=== PATIENT | male | born 1965 | race Caucasian/White ===

== ENCOUNTER 2019-02-15 09:46 | Outpatient (REF) | payer BC, SELFPAY ==
[2019-02-16 12:10] LABS: Anion Gap 14.9 mmol/L (3-11); BUN 19 mg/dL (7-18); CO2 24.1 mmol/L (21.0-32.0); CREATININE 1.45 mg/dL (0.70-1.30); Calcium 9.4 mg/dL (8.5-10.1); Calculated LDL 152; Chloride 101 mmol/L (98-107); Cholesterol 222 mg/dL (50-200); Estimated GFR 50.72 (mL/min/1.73m2); Glucose 174 mg/dL (70-100); HDL Cholesterol 34 mg/dL (40-60); Potassium 4.4 mmol/L (3.5-5.1); Sodium 140 mmol/L (136-145); Triglyceride 182 mg/dL (30-150)
== END 2019-02-15 10:06 ==
LOC: NCHCN 09:46
PROVIDERS: PCP Family Medicine; Visit Provider Family Medicine
DX: I10 Essential (primary) hypertension (principal)
CPT/HCPCS: 80048; 80061; 83721

== ENCOUNTER 2020-04-09 09:56 | Outpatient (REF) | payer BC, SELFPAY ==
[2020-04-09 19:50] LABS: Anion Gap 12.8 mmol/L (3-11); BUN 21 mg/dL (7-18); CO2 23.2 mmol/L (21.0-32.0); Calcium 9.5 mg/dL (8.5-10.1); Chloride 102 mmol/L (98-107); Estimated GFR 48.59 (mL/min/1.73m2); Glucose 245 mg/dL (74-106); Potassium 4.3 mmol/L (3.5-5.1); Sodium 138 mmol/L (136-145)
== END 2020-04-09 10:16 ==
LOC: NCHCN 09:56
PROVIDERS: PCP Family Medicine; Visit Provider Registered Nurse
DX: I10 Essential (primary) hypertension (principal); E11.9 Type 2 diabetes mellitus without complications
CPT/HCPCS: 80048

== ENCOUNTER 2021-02-13 14:37 | Outpatient (REF) | payer BC, SELFPAY ==
[2021-02-13 15:04] LABS: ALT 32 U/L (16-63); AST 23 U/L (15-37); Albumin 4.2 g/dL (3.4-5.0); Alkaline Phosphatase 97 U/L (46-116); BUN 24 mg/dL (7-18); Bilirubin, Total 0.9 mg/dL (0.2-1.0); CREATININE 1.7 mg/dL (0.70-1.30); Calcium 9.8 mg/dL (8.5-10.1); Calculated LDL 29 mg/dL (<100); Chloride 101 mmol/L (98-107); Cholesterol 99 mg/dL (<200); Glucose 189 mg/dL (74-106); HDL Cholesterol 30 mg/dL (40-60); Potassium 4.7 mmol/L (3.5-5.1); Sodium 137 mmol/L (136-145); TSH 1.26 uIU/mL (0.36-3.74); Total Protein 7.8 g/dL (6.4-8.2); Triglyceride 201 mg/dL (<150)
== END 2021-02-13 14:38 | disposition home or self-care (01) ==
LOC: NCHCN 14:37
PROVIDERS: PCP Family Medicine; Visit Provider Family Medicine
DX: E78.5 Hyperlipidemia, unspecified (principal); I10 Essential (primary) hypertension; E11.8 Type 2 diabetes mellitus with unspecified complications
CPT/HCPCS: 80053; 80061; 84443

== ENCOUNTER 2021-12-07 09:58 | Outpatient (REF) | payer BC, SELFPAY ==
[2021-12-07 17:57] LABS: COMMENT (LAB VIEW ONLY) 217.73 mg/dL; Microalb ug/mg Crea 14.7 ug/mg Cr
== END 2021-12-07 09:59 | disposition home or self-care (01) ==
LOC: NCHCN 09:58
PROVIDERS: PCP Family Medicine; Visit Provider Family Medicine
DX: E11.8 Type 2 diabetes mellitus with unspecified complications (principal)
CPT/HCPCS: 82043; 82570

== ENCOUNTER 2022-03-15 17:46 | Outpatient (REF) | payer BC, SELFPAY ==
[2022-03-15 14:40] LABS: ALT 46 U/L (16-63); Anion Gap 10.4 mmol/L (3-11); BUN 18 mg/dL (7-18); CO2 26.6 mmol/L (21.0-32.0); CREATININE 1.4 mg/dL (0.70-1.30); Calcium 9.2 mg/dL (8.5-10.1); Calculated LDL 71 mg/dL (<100); Chloride 102 mmol/L (98-107); Cholesterol 154 mg/dL (<200); Estimated GFR 52.24 (mL/min/1.73m2); Glucose 168 mg/dL (74-106); HDL Cholesterol 37 mg/dL (40-60); Potassium 4.3 mmol/L (3.5-5.1); Sodium 139 mmol/L (136-145); Triglyceride 232 mg/dL (<150)
== END 2022-03-15 17:47 | disposition home or self-care (01) ==
LOC: NCHCN 17:46
PROVIDERS: PCP Family Medicine; Visit Provider Family Medicine
DX: E78.5 Hyperlipidemia, unspecified (principal); I10 Essential (primary) hypertension; E66.9 Obesity, unspecified
CPT/HCPCS: 80048; 80061; 84460

== ENCOUNTER 2023-05-25 18:19 | Outpatient (REF) | payer BC, SELFPAY ==
--- OUTSIDE RECORDS SUMMARY | 2023-05-25 18:22 | XMS_ITS | CCD ---
Author Name Unknown Address [address] [place] [address] [id number] Organization Unknown Address [address] [place] [address] [phone] Care Team Providers Care Occupational Nurse Name Role Phone KANCHAN HURTADO Attending Physician [phone] KANCHAN HURTADO Rounding (Secondary) Physici an [phone] Vital Signs Unknown or Not Available. Allergies Allergy Code Allergy Type Reaction Status No Known Allergies {Clinical monitoring unavailable} 0 Drug allergy Active Procedures Unknown or Not Available. History of Immunizations Unknown or Not Available. Problems Unknown or Not Available. Results Unknown or Not Available. Active Medications Unknown or Not Available. Medications Administered During Visit Unknown or Not Available. Encounters Encounter Diagnosis Diagnosis Code Start Date Encounter for preprocedural laboratory examinati on [id number] 01/12/2022 Social History Smoking Status Code Start Date End Date Never smoker [id number] Patient Decision Aids Unknown or Not Available. Discharge Instructions You were admitted to [facility] on 01/12/2022 15:11 with a principal diagnosis of Encounter for preprocedural laboratory examination You were discharged from [facility] on 01/12/2022 00:00 Should you have any questions prior to discharge, please contact a member of your healthcare team. If you have left the hospital and have any questions, please contact your primary care physician. Chief Complaint and Reason For Visit Unknown or Not Available. Function Status Unknown or Not Available. Plan of Care Unknown or Not Available. Referral/Transition of Care Unknown or Not Available.
--- OUTSIDE RECORDS SUMMARY | 2023-05-25 18:22 | XMS_ITS | CCD ---
Author Name Unknown Address [address] [place] [address] [phone] Organization Unknown Address [address] [place] [address] [phone] Care Team Providers Care Marine Pipefitter Name Role Phone KANCHAN HURTADO Attending Physician [phone] Vital Signs Unknown or Not Available. Allergies Allergy Code Allergy Type Reaction Status No Known Allergies {Clinical monitoring unavailable} 0 Drug allergy Active Procedures Unknown or Not Available. History of Immunizations Unknown or Not Available. Problems Unknown or Not Available. Results SUSANTRE WALKERONIX* - [place] [facility] Date/Time: 01/12/2022 08:53 Test Name Code Test Result Test Units Test Ref Rang e Tier- 00509-0 PRE-OP N/A SARS COV2 RNA: 37246-1 NEGATIVE N/A REFERENCE RANGE: NEGAT Active Medications Unknown or Not Available. Medications Administered During Visit Unknown or Not Available. Encounters Encounter Diagnosis Diagnosis Code Start Date Encounter for preprocedural laboratory examinati on [id number] 01/12/2022 Social History Smoking Status Code Start Date End Date Never smoker [id number] Patient Decision Aids Unknown or Not Available. Discharge Instructions You were admitted to [facility] on 01/12/2022 19:34 with a principal diagnosis of Encounter for preprocedural laboratory examination You had the following tests done:SUSAN COVID RHEONIX* You were discharged from [facility] on 01/12/2022 19:34 Should you have any questions prior to [...]
--- OUTSIDE RECORDS SUMMARY | 2023-05-25 18:22 | XMS_ITS | CCD ---
Author Name Unknown Address [address] [place] [address] [id number] Organization Unknown Address [address] [place] [address] [phone] Care Team Providers Care Long Term Care Pharmacist Name Role Phone ZIEGLERDIOBARD HERRERA Attending Physician [phone] Vital Signs Unknown or Not Available. Allergies [...] Encounters Encounter Diagnosis Diagnosis Code Start Date Obstructive sleep apnea (adult) (pediatric) G473 3 11/03/2021 Social History Smoking Status Code Start Date End Date Never smoker [id number] Patient Decision Aids Unknown or Not Available. Discharge Instructions You were admitted to [facility] on 11/03/2021 18:58 with a principal diagnosis of Obstructive sleep apnea (adult) (pediatric) You were discharged from [facility] on 11/04/2021 05:44 Should you have any questions prior to [...]
--- OUTSIDE RECORDS SUMMARY | 2023-05-25 18:22 | XMS_ITS | CCD ---
Author Name Unknown Address [address] [place] [address] [id number] Organization Unknown Address [address] [place] [address] [phone] Care Team Providers Care Rawhide Bone Roller Name Role Phone FLACO ATKINSON Attending Physician [phone] FLACO ATKINSON Rounding (Secondary) Physician [phone] Vital Signs Unknown or Not Available. Allergies [...] Obstructive sleep apnea (adult) (pediatric) G473 3 07/29/2021 Social History Smoking Status Code Start Date End Date Never smoker [id number] Patient Decision Aids Unknown or Not Available. Discharge Instructions You were admitted to [facility] on 07/29/2021 08:09 with a principal diagnosis of Obstructive sleep apnea (adult) (pediatric) You were discharged from [facility] on 07/29/2021 08:47 Should you have any questions prior to [...]
--- OUTSIDE RECORDS SUMMARY | 2023-05-25 18:23 | XMS_ITS | CCD ---
Author Name Unknown Address [address] [place] [address] [phone] Organization Unknown Address [address] [place] [address] [id number] Care Team Providers Care Design Agent Name Role Phone GENESIS, KANCHAN Lesley Attending Physician [phone] Vital Signs Vital Sign Value Unit Date/Time Recent/Initial ? BP Systolic 119 mmHg 01/14/2022 10:46 Initial VS BP Diastolic 83 mmHg 01/14/2022 10:46 Initia l VS Respiratory Rate 15 bpm 01/14/2022 10:46 In itial VS Heart Rate 74 bpm 01/14/2022 10:46 Initial VS O2 % BldC Oximetry 98 % 01/14/2022 10:46 Initial VS Body Temperature 36 degrees 01/14/2022 10:46 In itial VS BP Systolic 119 mmHg 01/14/2022 11:19 Most Re cent VS BP Diastolic 83 mmHg 01/14/2022 11:19 Most R ecent VS Respiratory Rate 20 bpm 01/14/2022 11:[address] Recent VS Heart Rate 70 bpm 01/14/2022 11:19 Most Rec ent VS O2 % BldC Oximetry 99 % 01/14/2022 11:19 Most Recent VS Body Temperature 36 degrees 01/14/2022 11:[address] Recent VS Allergies Allergy Code Allergy Type Reaction Status No Known Allergies {Clinical monitoring unavailable} 0 Drug allergy Active Procedures Procedure Code Procedure Type Date Colsc Flx w/[place] [address] CPT 01/14/2022 Colonoscopy, Flexible, Proxi mal To Splenic Flexure; w/Bx, Single/Multiple 64470 CPT 01/14/2022 History of Immunizations Unknown or Not Available. Problems Unknown or Not Available. Results GLUCOSE FINGER/HEEL CAPILLAR Y - Collect Date/Time: 01/14/2022 09:31 Test Name Code Test Result Test Units Test Ref Rang e GLUCOSE CAP 130 mg/dL L=70 H=116 Active Medications Unknown or Not Available. Medications Administered During Visit Unknown or Not Available. Encounters Encounter Diagnosis Diagnosis Code Start Date Encounter for screening for malignant neoplasm o f colon Z1211 01/14/2022 Social History Smoking Status Code Start Date End Date Never smoker [id number] Patient Decision Aids Unknown or Not Available. Discharge Instructions You were admitted to [facility] on 01/14/2022 09:00 with a principal diagnosis of Encounter for screening for malignant neoplasm of colon You had the following procedures done:Colsc Flx w/Rmvl Of Tumor Polyp Lesion Snare TqColonoscopy, Flexible, Proximal To Splenic Flexure; w/Bx, Single/Multiple You had the following tests done:GLUCOSE FINGER/HEEL CAPILLARY You were discharged from [facility] on 01/14/2022 13:37 Should you have any questions prior to [...]
--- OUTSIDE RECORDS SUMMARY | 2023-05-25 18:23 | XMS_ITS | CCD ---
Author Name Unknown Address [address] [place] [address] [phone] Organization Unknown Address [address] [place] [address] [phone] Care Team Providers Care Rn Triage Name Role Phone GENESIS, KANCHAN Sutton Attending Physician [phone] Vital Signs Unknown or Not Available. [...] Code Start Date End Date Never smoker [id number] Patient Decision Aids Unknown or Not Available. Discharge Instructions You were admitted to [facility] on 01/14/2022 00:56 with a principal diagnosis of Encounter for screening for malignant neoplasm of colon You were discharged from [facility] on 01/14/2022 00:57 Should you have any questions prior to [...]
[2023-05-25 22:36] LABS: Anion Gap 11.4 mmol/L (3-11); BUN 15 mg/dL (7-18); CO2 23.6 mmol/L (21.0-32.0); CREATININE 1.4 mg/dL (0.70-1.30); Calcium 9.5 mg/dL (8.5-10.1); Calculated LDL 25 mg/dL (<100); Chloride 102 mmol/L (98-107); Cholesterol 91 mg/dL (<200); Estimated GFR 58.26 (mL/min/1.73m2); Glucose 156 mg/dL (74-106); HDL Cholesterol 36 mg/dL (40-60); Potassium 3.7 mmol/L (3.5-5.1); Sodium 137 mmol/L (136-145); Triglyceride 150 mg/dL (<150)
[2023-05-25 23:40] LABS: COMMENT (LAB VIEW ONLY) 407.52 mg/dL; Microalb ug/mg Crea 11.3 ug/mg Cr
[2023-05-26 19:27] LABS: PSA, Screening 0.4 ng/mL (<=3.5)
== END 2023-05-25 18:20 | disposition home or self-care (01) ==
LOC: NCHCN 18:19
PROVIDERS: PCP Family Medicine; Visit Provider Family Medicine
DX: I10 Essential (primary) hypertension (principal); E11.8 Type 2 diabetes mellitus with unspecified complications; Z00.00 Encounter for general adult medical examination without abnormal findings; N18.31 Chronic kidney disease, stage 3a; F32.89 Other specified depressive episodes; E78.5 Hyperlipidemia, unspecified; Z12.5 Encounter for screening for malignant neoplasm of prostate
CPT/HCPCS: 80048; 80061; 84153; 82043; 82570

== ENCOUNTER 2024-05-23 16:24 | Outpatient (REF) | payer BC, SELFPAY ==
[2024-05-23 21:21] LABS: Anion Gap 7.2 mmol/L (3-11); BUN 13 mg/dL (7-18); CO2 26.8 mmol/L (21.0-32.0); CREATININE 1.6 mg/dL (0.70-1.30); Calcium 9.4 mg/dL (8.5-10.1); Calculated LDL 19 mg/dL (<100); Chloride 103 mmol/L (98-107); Cholesterol 103 mg/dL (<200); Estimated GFR 49.33 (mL/min/1.73m2); Glucose 167 mg/dL (74-106); HDL Cholesterol 35 mg/dL (40-60); Sodium 137 mmol/L (136-145); Triglyceride 245 mg/dL (<150)
[2024-05-23 21:47] LABS: COMMENT (LAB VIEW ONLY) 265.11 mg/dL
== END 2024-05-23 16:25 | disposition home or self-care (01) ==
LOC: NCHCN 16:24
PROVIDERS: PCP Family Medicine; Visit Provider Family Medicine
DX: E11.9 Type 2 diabetes mellitus without complications (principal); E78.5 Hyperlipidemia, unspecified
CPT/HCPCS: 80048; 80061; 82043; 82570

== ENCOUNTER 2024-07-04 12:29 | Outpatient (REF) | payer BC, SELFPAY ==
[2024-07-04 21:05] LABS: HCT 40.9 % (40.0-50.0); MCH 27.3 pg (27.0-33.0); MCHC 34.2 % (32.0-36.0); MCV 80 fL (80-95); MPV 10.3 fL (8.0-11.0); Platelet Count 217 10^3/uL (130-400); RBC 5.13 10^6/uL (4.36-5.78); RDW 12.8 % (11.8-14.1); RDW-SD 36.6 fL
[2024-07-04 21:55] LABS: Anion Gap 12.3 mmol/L (3-11); BUN 15 mg/dL (7-18); CO2 24.7 mmol/L (21.0-32.0); CREATININE 1.6 mg/dL (0.70-1.30); Calcium 9.4 mg/dL (8.5-10.1); Chloride 103 mmol/L (98-107); Estimated GFR 49.33 (mL/min/1.73m2); Glucose 209 mg/dL (74-106); Sodium 140 mmol/L (136-145); TSH (W/Ref FT4) 1.21 uIU/mL (0.36-3.74)
== END 2024-07-04 12:30 | disposition home or self-care (01) ==
LOC: NCHCN 12:29
PROVIDERS: PCP Family Medicine; Visit Provider Internal Medicine
DX: R42 Dizziness and giddiness; R06.00 Dyspnea, unspecified
CPT/HCPCS: 80048; 85027; 84443

== ENCOUNTER 2024-07-06 17:57 | Outpatient (REF) | payer BC, SELFPAY ==
[2024-07-06 21:53] LABS: PROTEIN 128.4 mg/dL; Prot/Crea Ur Ratio 0.53
== END 2024-07-06 17:58 | disposition home or self-care (01) ==
LOC: NCHCN 17:57
PROVIDERS: PCP Family Medicine; Visit Provider Internal Medicine
DX: N18.9 Chronic kidney disease, unspecified (principal)
CPT/HCPCS: 82565; 84156

== ENCOUNTER 2024-11-09 15:52 | Outpatient (REF) | payer BC, SELFPAY ==
[2024-11-09 22:17] LABS: ALT 28 U/L (16-63); AST 27 U/L (15-37); Albumin 3.8 g/dL (3.4-5.0); Alkaline Phosphatase 110 U/L (46-116); Anion Gap 11.2 mmol/L (3-11); BUN 18 mg/dL (7-18); Bilirubin, Total 0.9 mg/dL (0.2-1.0); CO2 24.8 mmol/L (21.0-32.0); CREATININE 1.6 mg/dL (0.70-1.30); Calcium 9.6 mg/dL (8.5-10.1); Chloride 103 mmol/L (98-107); Estimated GFR 49.02 (mL/min/1.73m2); Glucose 164 mg/dL (74-106); Potassium 4.1 mmol/L (3.5-5.1); Sodium 139 mmol/L (136-145); Total Protein 7.4 g/dL (6.4-8.2); Vitamin B12 217 pg/mL (193-986)
== END 2024-11-09 15:53 | disposition home or self-care (01) ==
LOC: NCHCN 15:52
PROVIDERS: PCP Family Medicine; Visit Provider Family Medicine
DX: R41.840 Attention and concentration deficit (principal)
CPT/HCPCS: 80053; 82607